=== PATIENT | male | born 1980 | race Hispanic/Latino ===

== ENCOUNTER 2016-10-20 14:25 | Emergency (ER) | payer SELFPAY ==
[~2016-10-20] VITALS: Ht 157.5 cm; Wt 75.0 kg
[2016-10-20 14:45] VITALS: BP 133/87; PULSE 79; RESP 16; O2SAT 98
--- NOTE | 2016-10-20 15:39 | DRSVH ---
PROCEDURE: X-RAY CHEST, TWO VIEWS ([id number]) INDICATIONS: chest pain TECHNIQUE: 2 views of the chest were acquired. COMPARISON: None. FINDINGS: Surgical changes and devices: None. Lungs and pleura: No pleural effusions or pneumothorax. Lungs are clear. Mediastinum: Mediastinal contours are normal. Heart size is normal. Bones and chest wall: No suspicious bony abnormalities. Soft tissues appear unremarkable. IMPRESSION: No acute disease Dictated by: Elliott Mckinney M.D. on 10/20/2016 at 15:37 Approved by: Elliott Mckinney M.D. on 10/20/2016 at 15:37
[2016-10-20 16:10] LABS: BASOPHILS % (AUTO) 0.7 % (0-3); EOSINOPHILS % (AUTO) 0.6 % (0-5); MONOCYTES % (AUTO) 9.1 % (4-12); Mean Corpuscular Hemoglobin 32.4 pg (27.0-35.0); Mean Corpuscular Volume 90.3 fL (81-100); NEUTROPHILS % (AUTO) 62.7 % (40-74); Platelet Count 284 bil/L (150-400)
[2016-10-20 16:43] LABS: TROPONIN T < 0.010 ug/L (0.0-0.011)
[2016-10-20 17:00] LABS: Magnesium 2.1 mg/dL (1.6-2.6)
[2016-10-20 17:11] VITALS: BP 144/86; PULSE 79; O2SAT 97
--- NOTE | 2016-10-20 17:11 | ED.REPORT ---
HPI-General Illness Date of Service Oct 20, 2016 ED Provider: Alexi Garcia MD 36 year old male with no significant past medical history who presents to the ED due to headache, chest tightness and shortness of breath that has been present intermittently for over a year. He states "it's hard to catch a breath. " He states that his symptoms resolved after taking a break from work, but have recently returned. He reports a bilateral frontal headache with radiation to the neck and shoulders. His pain is worse with head turning. Additionally, he reports fatigue and lightheadedness. Pt works in construction. Reports symptoms are worse with stress and anxiety. Nursing Notes Stated Complaint: CHEST PAIN/SOB Chief Complaint: General Complaint Nursing Notes Reviewed: Yes Allergies: Coded Allergies: No Known Allergies (Unverified , 10/20/16) General Time Seen by MD: 16:59 Chief Complaint Chest pain, Headache Hx Obtained From: Patient Arrived By: Walk-in Sudden in Onset?: No Onset Occurred: More than a week ago... Location: : Chest: Head Quality: Painful Severity: Current: Moderate Pertinent Negative: Relieved by nothing Past Medical History Past Medical History Pt reports no significant past medical history Past Surgical History None Smoking History Never Smoker Social History Alcohol Use: "Social" Drug Use: Denies drug use Other Social History: , Lives with children Ambulatory Status Independent Review of Systems Full Review of Systems Constitutional: Denies: Chills, Fever Respiratory: Reports: Shortness of breath, Denies: Non-productive cough Cardiovascular: Reports: Chest pain, Denies: Dyspnea on exertion, Palpitations GI: Denies: Abdominal pain, Diarrhea, Nausea, Vomiting Musculoskeletal: Reports: Neck pain Skin: Denies Diaphoresis, Denies Rash Neurologic: Reports: Headache, Denies: Change LOC Complete sys rev & neg: except as marked. Physical Exam Vital Signs Vital Signs Date Time Temp Pulse Resp B/P Pulse Ox O2 Delivery O2 Flow Rate FiO2 10/20/16 18:58 37.2 69 139/94 93 Room Air 10/20/16 17:11 37.2 79 144/86 97 Room Air 10/20/16 14:45 36.5 79 16 133/87 98 Room Air Initial VS: Reviewed General/Constitutional: Well-developed, Well-nourished Head / Eyes: Atraumatic, Normocephalic, PERRL ENT: Mucous membranes moist, Conjunctiva normal, No scleral icterus Respiratory: Breath sounds normal, Clear to auscultation, No respiratory distress Cardiovascular: Regular rate & rhythm, Heart sounds normal, Intact distal pulses Abdomen / GI: Soft, Non-tender, No guarding, No rebound, No distention Extremities: Vascular intact, Neuro intact, No swelling, No tenderness Skin: Warm, Dry, No cyanosis Psychiatric: Mood/affect normal, Behavior normal, Normal thought content Neck: No midline vertebral tend Cervical paraspinal TTP bilat Neurologic: Oriented X3, Speech NL, No motor deficits No pronator drift Interpretation & Diagnostics Lab Results Interpretation Result Diagram: 10/20/16 1600 10/20/16 1600 Test 10/20/16 16:00 White Blood Count 11.3th/mm3 (3.8-10.1) Red Blood Count 5.06mil/mm3 (4.40-5.80) Hemoglobin 16.4g/dL (13.8-17.2) Hematocrit 45.7% (41.0-50.0) Mean Corpuscular Volume 90.3fL (81-100) Mean Corpuscular Hemoglobin 32.4pg (27.0-35.0) Mean Corpuscular Hemoglobin Concent 35.9% (32.0-37.0) Red Cell Distribution Width 12.1% (12.3-15.4) Platelet Count 284bil/L (150-400) Neutrophils (%) (Auto) 62.7% (40-74) Lymphocytes (%) (Auto) 26.6% (14-46) Monocytes (%) (Auto) 9.1% (4-12) Eosinophils (%) (Auto) 0.6% (0-5) Basophils (%) (Auto) 0.7% (0-3) Sodium Level 142mEq/L (134-144) Potassium Level 4.7mEq/L (3.5-5.2) Chloride Level 103mEq/L (97-108) Carbon Dioxide Level 28mmol/L (18-29) Blood Urea Nitrogen 19mg/dL (6-20) Creatinine 0.87mg/dL (0.76-1.27) Estimat Glomerular Filtration Rate 107mL/min (>59) Glucose Level 85mg/dL (60-99) Calcium Level 9.8mg/dL (8.5-10.1) Magnesium Level 2.1mg/dL (1.6-2.6) Total Bilirubin 0.2mg/dL (0.0-1.2) Aspartate Amino Transf (AST/SGOT) 23U/L (0-50) Alanine Aminotransferase (ALT/SGPT) 30U/L (0-44) Alkaline Phosphatase 93U/L (25-150) Troponin T < 0.010ug/L (0.0-0.011) Total Protein 7.4g/dL (6.4-8.4) Albumin 4.5g/dL (3.4-5.0) Hold Amanda Top Tube Received (Received) General Lab Results Interp 1: Labs reviewed ECG Interpretation Time: 15:12 Interpreted by: ED physician Normal ECG Interpretation: Normal ECG w/ rate of... (75) X-Ray Chest Interpretation Chest Xray Interpretation: IMPRESSION: No acute disease Dictated by: Elliott Mckinney M.D. on 10/20/2016 at 15:37 View: AP & lat Interpretation / Wet Read by: Interpret - Radiologist Re-Eval/Medical Decision Med Decision/Clinical Course In summary, the patient is a 36-year-old male in generally good health who presents with approximately one year of intermittent headaches with radiation to his neck and back and associated sensation of not being able to breathe. These episodes occur in stressful situations. Upon arrival he is afebrile with stable vital signs in no apparent distress. CXR: Obtained, reviewed and interpreted by myself shows no evidence of acute infiltrates, effusions or pneumothorax. Cardiac and mediastinal silhouette normal. No bony or soft tissue abnormalities. EKG was obtained interpreted by myself as documented above. CBC and CMP unremarkable except for mild leukocytosis. Troponin negative. Overall presentation was consistent with stress reaction likely manifesting with sensation of difficulty breathing and tension type headache. The patient was without any neurologic findings or head trauma. I do not feel that neuro imaging is indicated as intracranial mass lesion or hemorrhage seems very unlikely in this setting. The patient has no major cardiac risk factors it is relatively young. Initial screening troponin and EKG are negative. I am reassured at this time against acute coronary syndrome and I do not feel that further workup is immediately indicated. The patient was treated with Toradol for headache and reported resolution of his symptoms. At this time I feel that he is appropriate for discharge home. He has no meningismus or other findings suggestive of meningitis. The patient was provided with follow-up and return precautions and discharged in good condition. Time of Eval: 18:00 Patient Status: Condition improved Re-Evaluation/Progress Note: Updated pt of labs, ECG and imaging results. Discussed plan for discharge and follow up. All questions addressed. Counseled Regarding: Diagnosis, Lab results, Need for follow-up, When/why to return to ED Discharge & Departure Primary Impression: Tension headache Additional Impressions: Chest tightness Anxiety Leukocytosis Leukocytosis type: unspecified Qualified Code: D72.829 - Elevated white blood cell count, unspecified Disposition: Home Discharge Condition All VS Reviewed: Yes Condition: Improved Patient Instructions: Tension Headache (ED) Referrals: [facility] (PCP) Scribe Attestation Portions of this note were transcribed by Juli Maya. I, (Dr. Garcia) personally performed the history, physical exam and medical decision-making; I reviewed and confirmed the accuracy of the information in the transcribed note. Signed by: Juli Maya. 10/20/2016, 2030 [facility] Beck O MD Oct 20, 2016 17:11 Juli Maya Oct 20, 2016 18:02
[2016-10-20 18:58] VITALS: BP 139/94; PULSE 69; O2SAT 93
== END 2016-10-20 19:09 | disposition home or self-care (01) ==
LOC: SED 14:25
DX: G44.209 Tension-type headache, unspecified, not intractable (principal); R07.89 Other chest pain; D72.829 Elevated white blood cell count, unspecified